=== PATIENT | male | born 1955 | race Caucasian/White ===

== ENCOUNTER → 2017-02-28 | Outpatient (REF) | payer BC ==
[~2017-02-28] MED LIST: ALEV220T22 PO; ALLO15TA PO; ATEN25TA PO; ATEN50TA2 PO; COLC1TAB14 PO; COUM7.5T PO; HYDR10TAB PO; LISI-538 PO; OXYC-141 PO; PERC5TAB12 PO; SIMV40TA2 PO; TYLE167L PO
[2017-02-28 12:49] LABS: ALBUMIN/GLOBULIN RATIO 1.29 (1.00-1.93); ALKALINE PHOSPHATASE 50 U/L (45-117); ALT/SGPT 32 U/L (12-78); ANION GAP 9 MEQ/L (8-16); AST/SGOT 20 U/L (15-37); BILIRUBIN,TOTAL 0.8 MG/DL (0.2-1.0); BLOOD UREA NITROGEN 18 MG/DL (7-18); CALCIUM LEVEL 8.6 MG/DL (8.8-10.2); CARBON DIOXIDE LEVEL 28 MEQ/L (21-32); CHLORIDE LEVEL 104 MEQ/L (98-107); CHOLESTEROL LEVEL 183 MG/DL (<200); CREATININE FOR GFR 0.93 MG/DL (0.70-1.30); GLOMERULAR FILTRATION RATE > 60.0 (>49); GLUCOSE, FASTING 102 MG/DL (80-110); POTASSIUM SERUM 4.7 MEQ/L (3.5-5.1); SODIUM LEVEL 141 MEQ/L (136-145); TOTAL PROTEIN 7.1 GM/DL (6.4-8.2); TRIGLYCERIDES LEVEL 160 MG/DL (<150); URIC ACID 9.3 MG/DL (3.5-7.2)
== END ==
LOC: M LABDRAW1 11:30
PROVIDERS: ATTEND Emergency Medicine
DX: I10 Essential (primary) hypertension (principal); E78.2 Mixed hyperlipidemia; M10.9 Gout, unspecified

== ENCOUNTER 2017-04-30 08:50 | Day surgery (SDC) | payer BC ==
[~2017-04-30] VITALS: Ht 185.4 cm; Wt 89.4 kg
[2017-04-30] MEDS ORDERED: NS 500 ML IV SCH (09:30)
[2017-04-30] MEDS ORDERED: PROPOFOL 200 MG/20 ML VIAL As Ordered ONE (10:12)
--- NOTE | 2017-04-30 10:30 | ROOR ---
Patient Name: Ru Su Procedure Date: 04/30/2017 10:05 AM Date of : 1955 Age: 62 Room: [facility] Gender: Male Note Status: Finalized Procedure: Colonoscopy Indications: Screening for colorectal malignant neoplasm Providers: DO Elen Galvan MD: SAMIRA CARRENO MD Requesting Provider: Medicines: Propofol per Anesthesia Complications: No immediate complications. Procedure: Pre-Anesthesia Assessment: - Prior to the procedure, a History and Physical was performed, and patient medications and allergies were reviewed. The patient is competent. The risks and benefits of the procedure and the sedation options and risks were discussed with the patient. All questions were answered and informed consent was obtained. Patient identification and proposed procedure were verified by the physician, the nurse, the anesthesiologist and the tire maintenance technician in the endoscopy suite. Mental Status Examination: alert and oriented. Airway Examination: normal oropharyngeal airway and neck mobility. Respiratory Examination: clear to auscultation. CV Examination: normal. Prophylactic Antibiotics: The patient does not require prophylactic antibiotics. Prior Anticoagulants: The patient has taken no previous anticoagulant or antiplatelet agents. ASA Grade Assessment: II - A patient with mild systemic disease. After reviewing the risks and benefits, the patient was deemed in satisfactory condition to undergo the procedure. The anesthesia plan was to use monitored anesthesia care (MAC). Immediately prior to administration of medications, the patient was re-assessed for adequacy to receive sedatives. The heart rate, respiratory rate, oxygen saturations, blood pressure, adequacy of pulmonary ventilation, and response to care were monitored throughout the procedure. The physical status of the patient was re-assessed after the procedure. The Colonoscope was introduced through the anus and advanced to the cecum, identified by the appendiceal orifice, ileocecal valve and palpation. The colonoscopy was performed without difficulty. The patient tolerated the procedure well. Findings: The perianal exam findings include non-thrombosed internal hemorrhoids and internal hemorrhoids (Grade I). Many small-mouthed diverticula were found in the sigmoid colon. The exam was otherwise without abnormality on direct and retroflexion views. Impression: - Non-thrombosed internal hemorrhoids and internal hemorrhoids (Grade I) found on perianal exam. - Diverticulosis in the sigmoid colon. - The examination was otherwise normal on direct and retroflexion views. - No specimens collected. Recommendation: - Patient has a contact number available for emergencies. The signs and symptoms of potential delayed complications were discussed with the patient. Return to normal activities tomorrow. Written discharge instructions were provided to the patient. - Repeat colonoscopy in 5-10 years for screening purposes. - Return to my office PRN. Jayy Bobby DO 04/30/2017 10:30:04 AM This report has been signed electronically. Number of Addenda: 0 Note Initiated On: 04/30/2017 10:05 AM Estimated Blood Loss: Estimated blood loss: none.
[2017-04-30 10:46] VITALS: BP 151/85
[2017-05-23] MEDS ORDERED: CHLO25TA PO (10:45)
== END 2017-04-30 10:49 | disposition home or self-care (01) ==
LOC: M OPP 08:50 → EDSTATUS 10:00 → M OPP 10:49
PROVIDERS: ATTEND Surgery
DX: Z12.11 Encounter for screening for malignant neoplasm of colon (principal); K64.8 Other hemorrhoids; K64.0 First degree hemorrhoids; K57.30 Diverticulosis of large intestine without perforation or abscess without bleeding; I10 Essential (primary) hypertension; E78.00 Pure hypercholesterolemia, unspecified; M10.9 Gout, unspecified; M19.90 Unspecified osteoarthritis, unspecified site; R06.83 Snoring; Z79.899 Other long term (current) drug therapy

== ENCOUNTER → 2017-05-27 | Outpatient (REF) | payer BC ==
[~2017-05-27] MED LIST changes: +CHLO25TA PO
[2017-05-27 17:02] LABS: ANION GAP 8 MEQ/L (8-16); BLOOD UREA NITROGEN 21 MG/DL (7-18); CARBON DIOXIDE LEVEL 26 MEQ/L (21-32); CHLORIDE LEVEL 103 MEQ/L (98-107); GLOMERULAR FILTRATION RATE > 60.0 (>49); GLUCOSE, FASTING 93 MG/DL (80-110); POTASSIUM SERUM 4.3 MEQ/L (3.5-5.1); SODIUM LEVEL 137 MEQ/L (136-145); URIC ACID 5.6 MG/DL (3.5-7.2)
[2017-05-27 17:34] LABS: BASO % 0.8 % (0.0-1.0); EOS # 0.1 10^3/uL (0.0-0.50); IMMATURE GRANULOCYTE % 0.4 % (0-0); LYMPH # 1.6 10^3/uL (1.5-4.5); MEAN CORPUSCULAR HGB CONC 35.2 g/dl (32.0-36.5); MEAN CORPUSCULAR VOLUME 96.5 fl (80.0-96.0); MONO # 0.8 10^3/uL (0.0-0.8); MONO % 15.5 % (0.0-5.0); NEUTROPHILS # 2.6 10^3/uL (1.8-7.7); NEUTROPHILS % 51.3 % (36.0-66.0); PLATELET COUNT, AUTOMATED 266 10^3/uL (150-450); RED CELL DISTRIBUTION WIDTH 11.8 % (11.5-14.5); WHITE BLOOD COUNT 5.1 10^3/uL (4.0-10.0)
[2017-05-30 00:07] LABS: Lyme Disease IgG/IgM Antibodie <0.91 ISR (0.00-0.90); Lyme Disease IgM Ab Quantitati <0.80 index (0.00-0.79)
== END ==
LOC: M LAB REF 15:59
PROVIDERS: ATTEND Emergency Medicine
DX: K40.90 Unilateral inguinal hernia, without obstruction or gangrene, not specified as recurrent (principal); M25.549 Pain in joints of unspecified hand

== ENCOUNTER 2017-05-30 06:44 | Day surgery (SDC) | payer BC ==
[~2017-05-30] VITALS: Ht 185.4 cm; Wt 88.9 kg
[2017-05-30] MEDS ORDERED: LR 1,000 ML IV ONE (07:00)
[2017-05-30] MEDS ORDERED: BUPIVACAINE/EPIN 0.25% 30 ML VIAL As Ordered ONE (08:14)
[2017-05-30] MEDS ORDERED: PROPOFOL 200 MG/20 ML VIAL As Ordered ONE (08:59)
[2017-05-30] MEDS ORDERED: fentaNYL 250 MCG/5 ML INJECTION (J3010) As Ordered ONE (08:59)
[2017-05-30] MEDS ORDERED: MIDAZOLAM INJ 2 MG/2 ML VIAL (J2250) As Ordered ONE (08:59)
[2017-05-30] MEDS ORDERED: LIDOCAINE 2% INJ 100 MG/5 ML SDV (FOR ANES.) As Ordered ONE (08:59)
[2017-05-30] MEDS ORDERED: ROCURONIUM BROMIDE 50 MG/5 ML VIAL/SYRINGE As Ordered ONE ×2 (08:59→09:46)
[2017-05-30] MEDS ORDERED: ePHEDrine SULFATE 25 MG/5 ML(5MG/ML) SYRINGE As Ordered ONE ×2 (08:59→09:06)
[2017-05-30] MEDS ORDERED: NEOSTIGMINE 10 MG/10 ML VIAL (J2710) As Ordered ONE (09:32)
[2017-05-30] MEDS ORDERED: GLYCOPYRROLATE INJ 0.2 MG/ML 2 ML VIAL As Ordered ONE (09:32)
[2017-05-30] MEDS ORDERED: KETOROLAC 60 MG/2 ML VIAL (J1885) As Ordered ONE (09:33)
[2017-05-30] MEDS ORDERED: ONDANSETRON 4MG/2ML VIAL (J2405) As Ordered ONE (09:33)
[2017-05-30] MEDS ORDERED: ONDANSETRON 4MG/2ML VIAL (J2405) IV PRN (11:15)
[2017-05-30] MEDS ORDERED: LR 1,000 ML IV SCH (11:15)
[2017-05-30] MEDS ORDERED: MEPERIDINE INJ 25 MG/ML VIAL (J2175) IV PRN (11:15)
[2017-05-30] MEDS ORDERED: fentaNYL 100 MCG/2 ML INJECTION (J3010) IV PRN (11:15)
[2017-05-30] MEDS ORDERED: NORCO, ANEXSIA 5/325MG TABLET (HYDROcodone/ACETAMINOPHEN) PO PRN (11:15)
[2017-05-30] MEDS ORDERED: PERCOCET 5MG/325MG TAB PO PRN (11:15)
[2017-05-30 13:05] VITALS: BP 158/92
--- NOTE | 2017-05-30 17:19 | RO ---
DATE OF PROCEDURE: 05/30/2017 PREOPERATIVE DIAGNOSIS: Right inguinal hernia. POSTOPERATIVE DIAGNOSIS: Right inguinal hernia. PROCEDURE: Robotic assisted right inguinal hernia repair. SURGEON: Dr. Bobby [employer] OFFICER: Precious Flores ANESTHESIA: General: ESTIMATED BLOOD LOSS: 5 COMPLICATIONS: None INDICATIONS FOR PROCEDURE: The patient is 62-year-old male who presents with a large right inguinal hernia. RECOMMENDATIONS: Proceed with robotic assisted repair, possible open. Risks, benefits of the procedure not limited but include bleeding, infection, hernia formation, hernia recurrence, damage to surrounding structures and possible need further surgery. After discussion all of these risks and benefits and consent was obtained and procedure was started. PROCEDURE: The patient brought back to operating room seven a sufficient sedation, the abdomen was sterilely prepped and draped. Richardson catheter was placed. Next a time out was done to confirm proper patient and proper procedure. Following that an 8 mm incision was made supraumbilically. The abdomen was then entered using a Veress needle. The abdomen was insufflated to 50 mmHg. Next the Veress needle was removed, 5 mm OptiVu port was used to gain access to the abdomen. Once abdomen center 8 mm robotic ports were placed in left and right. The 5 mm OptiVu port was then replaced with 8 mm camera port for the robot. The patient was placed in Trendelenburg position and the robot was docked to the ports. Next, from the console the abdomen was examined. There is no signs of any hernia on the left. There was a medium sized hernia on the right. Peritoneum was incised in the right lower quadrant. A curvilinear incision was then made using the scissors. The preperitoneal space was entered. Dissection was completed medially, laterally and posteriorly. After doing so that was a small hernia sac was dissected free from the cord structures. Once this hernia sac was completely reduced. There is a large cord lipoma that was identified. This also was carefully dissected free and completely excised. Once the lipoma was removed. The 3-D Max medium size mesh was placed into the preperitoneal space suture at the pubic symphysis with a Vicryl suture. The peritoneum was then closed with a running V-Loc suture. Once this was completed the sutures were removed. The cord lipoma that was removed was taken out of the abdomen with a 5 mm Endo Catch bag. The abdomen was exam last time to confirm hemostasis and there are no signs of any injury. The abdomen was then desufflated, ports were removed. Skin incision closed with 4-0 Vicryl subcuticular sutures. The abdomen cleaned and dried. Steri-Strips, 4x4, and tape were applied thus ending procedure.
== END 2017-05-30 13:26 | disposition home or self-care (01) ==
LOC: M SDC 06:44
PROVIDERS: ATTEND Surgery
DX: K40.90 Unilateral inguinal hernia, without obstruction or gangrene, not specified as recurrent (principal); I10 Essential (primary) hypertension; E78.5 Hyperlipidemia, unspecified; M10.9 Gout, unspecified; Z79.899 Other long term (current) drug therapy
CPT/HCPCS: 49650; 88302; C1781; J0690; J1885; J2250; J2405; J2710; J3010

== ENCOUNTER → 2018-07-02 | Outpatient (REF) | payer BC ==
[~2018-07-02] MED LIST changes: +IBUP200T45 PO
[2018-07-02 12:29] LABS: BASO # 0.1 10^3/uL (0.0-0.2); BASO % 1.2 % (0.0-1.0); EOS % 0.9 % (0.0-3.0); HEMATOCRIT 44.9 % (42.0-52.0); HEMOGLOBIN 15.5 g/dl (13.5-17.5); LYMPH # 1.4 10^3/uL (1.5-4.5); LYMPH % 31.7 % (24.0-44.0); MEAN CORPUSCULAR HEMOGLOBIN 33.7 pg (27.0-33.0); MEAN CORPUSCULAR HGB CONC 34.5 g/dl (32.0-36.5); MEAN CORPUSCULAR VOLUME 97.6 fl (80.0-96.0); MONO # 0.7 10^3/uL (0.0-0.8); NEUTROPHILS # 2.1 10^3/uL (1.8-7.7); NEUTROPHILS % 49.3 % (36.0-66.0); PLATELET COUNT, AUTOMATED 257 10^3/uL (150-450); WHITE BLOOD COUNT 4.3 10^3/uL (4.0-10.0)
[2018-07-02 12:33] LABS: ALBUMIN 3.8 GM/DL (3.2-5.2); ALT/SGPT 35 U/L (12-78); BILIRUBIN,TOTAL 0.6 MG/DL (0.2-1.0); BLOOD UREA NITROGEN 23 MG/DL (7-18); CALCIUM LEVEL 8.2 MG/DL (8.8-10.2); CARBON DIOXIDE LEVEL 29 MEQ/L (21-32); CHLORIDE LEVEL 101 MEQ/L (98-107); CHOLESTEROL LEVEL 218 MG/DL (<200); CHOLESTEROL RISK RATIO 3.633 (<5); CREATININE FOR GFR 0.89 MG/DL (0.70-1.30); GLOMERULAR FILTRATION RATE > 60.0 (>49); GLUCOSE, FASTING 100 MG/DL (70-100); HDL CHOLESTEROL 60 MG/DL (>40); LDL CHOLESTEROL 110 MG/DL (<100); NON-HDL-C 158 MG/DL; POTASSIUM SERUM 4.8 MEQ/L (3.5-5.1); SODIUM LEVEL 136 MEQ/L (136-145); TOTAL PROTEIN 7.4 GM/DL (6.4-8.2); TRIGLYCERIDES LEVEL 242 MG/DL (<150); URIC ACID 9.1 MG/DL (3.5-7.2)
== END ==
LOC: M LABDRAW1 11:55
PROVIDERS: ATTEND Physician Assistant
DX: E78.2 Mixed hyperlipidemia (principal); I10 Essential (primary) hypertension; M10.9 Gout, unspecified

== ENCOUNTER 2018-07-18 23:29 | Emergency (ER) | payer BC ==
[~2018-07-18] VITALS: Ht 182.9 cm; Wt 88.6 kg
[~2018-07-18 23:29] MED LIST changes: -IBUP200T45 PO
[2018-07-18] MEDS ORDERED: IBUP200T45 PO (23:37)
[2018-07-19 01:12] LABS: BASO % 0.3 % (0.0-1.0); HEMATOCRIT 45.6 % (42.0-52.0); HEMOGLOBIN 16.4 g/dl (13.5-17.5); LYMPH # 0.8 10^3/uL (1.5-4.5); LYMPH % 6.8 % (24.0-44.0); MEAN CORPUSCULAR HEMOGLOBIN 34.4 pg (27.0-33.0); MEAN CORPUSCULAR VOLUME 95.6 fl (80.0-96.0); MONO # 0.7 10^3/uL (0.0-0.8); MONO % 6.1 % (0.0-5.0); NEUTROPHILS # 10.5 10^3/uL (1.8-7.7); NEUTROPHILS % 86.1 % (36.0-66.0); PLATELET COUNT, AUTOMATED 273 10^3/uL (150-450); RED BLOOD COUNT 4.77 10^6/uL (4.30-6.10); WHITE BLOOD COUNT 12.2 10^3/uL (4.0-10.0)
[2018-07-19 01:24] LABS: ALT/SGPT 42 U/L (12-78); BILIRUBIN,DIRECT 0.2 MG/DL (0.0-0.2); BILIRUBIN,TOTAL 0.7 MG/DL (0.2-1.0); BLOOD UREA NITROGEN 18 MG/DL (7-18); CALCIUM LEVEL 9.2 MG/DL (8.8-10.2); CARBON DIOXIDE LEVEL 26 MEQ/L (21-32); CHLORIDE LEVEL 96 MEQ/L (98-107); CREATININE FOR GFR 0.96 MG/DL (0.70-1.30); GLOMERULAR FILTRATION RATE > 60.0 (>49); GLUCOSE, FASTING 182 MG/DL (70-100); LIPASE 220 U/L (73-393); POTASSIUM SERUM 3.7 MEQ/L (3.5-5.1); SODIUM LEVEL 132 MEQ/L (136-145); TOTAL PROTEIN 8.2 GM/DL (6.4-8.2)
[2018-07-19] MEDS ORDERED: MORPHINE 4 MG/ML 1ML VIAL/SYRINGE (J2270) IV PRN (01:30)
[2018-07-19] MEDS ORDERED: ONDANSETRON 4MG/2ML VIAL (J2405) IV ONE (01:30)
[2018-07-19] MEDS: GASTROGRAFIN SOLUTION 30ML PO SCH ×2 (02:39→03:04)
[2018-07-19] MEDS ORDERED: ISOVUE-370 76% 100ML VIAL (Q9967) As Ordered ONE (03:44)
[2018-07-19 04:59] VITALS: BP 123/72
--- NOTE | 2018-07-19 05:46 | REPVR ---
EXAM: CT Abdomen and Pelvis With Contrast EXAM DATE/TIME: 07/19/2018 3:48 AM CLINICAL HISTORY: 63 years old, male; Pain; Abdominal pain; Generalized; Additional info: R/O small bowel obstruction TECHNIQUE: Axial computed tomography images of the abdomen and pelvis with intravenous contrast. All CT scans at this facility use at least one of these dose optimization techniques: automated exposure control; mA and/or kV adjustment per patient size (includes targeted exams where dose is matched to clinical indication); or iterative reconstruction. Coronal and sagittal reformatted images were created and reviewed. CONTRAST: 100 ml of ISOVUE 370 administered intravenously. COMPARISON: CR Abdomen,Flat Upright,PA CHEST 07/19/2018 1:08 AM FINDINGS: Lower thorax: There is minimal, nonspecific dependent density in the lung bases. ABDOMEN: Liver: There is a diffuse decrease in hepatic parenchymal density, consistent with fatty infiltration. Gallbladder and bile ducts: The gallbladder appears partially contracted. No stones are identified. No biliary ductal dilation is seen. Pancreas: The pancreas is normal with no ductal dilation. Spleen: The spleen is normal. Adrenals: The adrenal glands are normal. Kidneys and ureters: There are no ureteral stones or hydronephrosis. The kidneys are normal. Stomach and bowel: The gastric fundus appears wrapped around the GE junction, which is presumably postoperative. There is gaseous distention of the stomach without significant dilation. The proximal small bowel loops are normal in caliber but there is progressive dilation of the small bowel, with dilated, fluid-filled mid and distal small bowel loops. There is mild thickening of a few small bowel loops in the pelvis. These thickened loops are smaller in caliber, but there is fluid within and mild dilation of bowel loops continuing further distally, through the terminal ileum to the ileocecal junction. There is a small amount of fluid adjacent to bowel loops in the pelvis. The colon is nondilated but does contain fluid in the right colon and fluid and stool forming air-fluid levels in the transverse colon and left colon. Mild diverticulosis is present in the distal colon. Appendix: The appendix is not specifically identified. PELVIS: Bladder: The bladder is normal. Reproductive: The prostate gland and seminal vesicles are normal. ABDOMEN and PELVIS: Intraperitoneal space: There is no free intraperitoneal air. Bones/joints: Degenerative endplate changes are seen at multiple levels in the visualized spine. Soft tissues: Unremarkable. Vasculature: The aorta demonstrates moderate atherosclerotic calcification. Lymph nodes: No lymphadenopathy is seen. IMPRESSION: 1. Dilated fluid-filled small bowel, with thickening of a few small bowel loops in the pelvis, which is probably causing a degree of small bowel obstruction. However, there is continued fluid and mild dilation of small bowel loops beyond this site, through the ileocecal junction, with fluid in the right and transverse colon without significant dilation of the colon. Therefore, there may be an ileus or inflammation beyond the few thickened loops in the pelvis. 2. There is a diffuse decrease in hepatic parenchymal density, consistent with fatty infiltration. Electronically signed by: Carolina Frost On 07/19/2018 05:45:49 AM
--- NOTE | 2018-07-19 06:06 | ECGEPIP ---
Stationary ECG Study [facility] - ED Test Date: 2018-07-19 Pat Name: CHESTER VEGA Department: Room: - Gender: M Instructional Design Specialist: : 1955 Requested By: Trice Nava PA-C Order Number: [id number] Reading MD: Patricio Vázquez Measurements Intervals Ransom Rate: 72 P: 61 GA: 156 QRS: 23 QRSD: 108 T: 48 QT: 380 QTc: 416 Interpretive Statements SINUS RHYTHM POSSIBLE LEFT ATRIAL ENLARGEMENT TALL T WAVES,, POSSIBLE HYPERKALEMIA SIMILAR TO 08/09/15 Electronically Signed On 07-19-2018 6:06:51 EST by Patricio Vázquez
--- NOTE | 2018-07-19 08:48 | REP ---
ABDOMEN, FLAT/UPRIGHT, PA CHEST, FOUR VIEWS: HISTORY: Abdominal pain. COMPARISON: 08/09/2015 Air is present in small and large intestine. There are several air-fluid levels and dilated loops of small intestine. There is no pneumoperitoneum. The lungs are clear. IMPRESSION: Findings consistent with ileus or small bowel obstruction. A repeat examination is recommended for further evaluation. Electronically Signed by Dexter Patino MD 07/19/2018 08:59 A
--- NOTE | 2018-07-21 09:01 | ED PDOC ---
Post-Departure Follow-Up dr mendez/ainsley faxed formal report of abdl series and ct abd/p for fu Tuyet Montez MD Jul 21, 2018 09:01
== END 2018-07-19 07:06 | disposition home or self-care (01) ==
LOC: M ED 23:29
DX: I10 Essential (primary) hypertension (principal); K52.9 Noninfective gastroenteritis and colitis, unspecified; E78.5 Hyperlipidemia, unspecified; M19.90 Unspecified osteoarthritis, unspecified site; M10.9 Gout, unspecified
CPT/HCPCS: 36415; 74021; 74177; 80048; 80076; 83690; 85025; 93005; 96374; 96375; 99284; J2270; J2405; Q9963; Q9967